=== PATIENT | female | born 1975 | race Caucasian/White ===

== ENCOUNTER 2022-08-27 09:51 | Day surgery (SDC) | payer OTHER ==
[2022-08-27] MEDS ORDERED: CEFAZOLIN 2 GM-D5W BAG** 2 GM/50 ML ML IV SCH (10:30)
[2022-08-27] MEDS ORDERED: Lactated Ringers 1,000 ML IV SCH (10:30)
[2022-08-27] MEDS ORDERED: DEXMEDETOMIDINE 80 MCG/20ML-NS IV ONE (11:13)
[2022-08-27] MEDS ORDERED: Marcaine 0.5%/Epinephrine 10 ML ONE ×2 (11:13→11:41)
[2022-08-27] MEDS ORDERED: Decadron 4 MG INJ ONE ×2 (11:13→11:41)
[2022-08-27] MEDS ORDERED: SUBLIMAZE 250 MCG/5 ML ONE (11:18)
[2022-08-27] MEDS ORDERED: Versed 2 MG/2 ML Injection ONE ×3 (11:18→14:52)
[2022-08-27 11:22] LABS: Hematocrit 42.5 % (35-47); Mean Cell Volume 81.7 fL (78-100); Mean Corpuscular Hemoglobin 26.9 pg (26-32); Mean Corpuscular Hgb Concent. 32.9 g/dL (32-36); Mean Platelet Volume 8.4 fL (7.5-11.0); Platelet Count 326 x10^3/uL (150-450); Red Cell Distribution Width 13.7 % (11.5-14.0); White Blood Count 11.4 x10^3/uL (4.0-10.5)
[2022-08-27] MEDS ORDERED: Naropin 0.5% 30 ML VIAL ONE (11:41)
[2022-08-27 11:43] LABS: ALBUMIN 4.5 g/dL (3.5-5.0); ALKALINE PHOSPHATASE 99 U/L (38-126); ANION GAP 15.5 MEQ/L (5-15); BLOOD UREA NITROGEN 11 mg/dL (7-17); CHLORIDE 101 mmol/L (98-107); Calcium 9.8 mg/dL (8.4-10.2); Carbon Dioxide 24 mmol/L (22-30); Creatinine 1 0.42 mg/dL (0.52-1.04); EST GLOMERULAR FILTRATION RATE > 60.0 ML/MIN; Glucose 157 mg/dL (74-106); Potassium 3.9 mmol/L (3.5-5.1); SGOT/AST 30 U/L (14-36); SGPT/ALT 32 U/L (0-35); SODIUM 137 mmol/L (137-145); Total Protein 8.5 g/dL (6.3-8.2)
[2022-08-27] MEDS ORDERED: Xylocaine-Mpf 2% 5 Ml Vial ONE ×2 (11:45→14:52)
[2022-08-27] MEDS ORDERED: SUBLIMAZE 100 MCG/2 ML ONE ×2 (14:52→15:30)
[2022-08-27] MEDS ORDERED: TORAdol 30 mg Injection ONE (14:52)
[2022-08-27] MEDS ORDERED: Zemuron 100 MG/10 ML ONE ×3 (14:52→16:42)
[2022-08-27] MEDS ORDERED: DIPRIVAN 200 MG/20 ML IV ONE (14:52)
[2022-08-27] MEDS ORDERED: Zofran 4 MG/2 ML VIAL ONE (14:52)
[2022-08-27] MEDS ORDERED: BRIDION 200MG/2ML IV ONE (15:11)
[2022-08-27] MEDS ORDERED: OFIRMEV 100 ML IV ONE (15:29)
[2022-08-27] MEDS ORDERED: Lactated Ringers 1,000 ML IV ONE (15:41)
[2022-08-27] MEDS ORDERED: REMIFENTANIL HCL IV ONE (16:51)
[2022-08-27] MEDS ORDERED: TRANDATE 20 MG/4 ML SYRINGE IV ONE ×2 (18:11→18:40)
[2022-08-27] MEDS ORDERED: Hydromorphone 1 mg/ml Injection ONE ×2 (18:35→18:47)
--- NOTE | 2022-08-27 18:49 | XRAY ---
Indication: Right foot 1st-3rd tarsometatarsal arthrodesis and calcaneal autograft. Intraoperative fluoroscopy provided for 5 minutes 10 seconds. 27 digital spot images submitted for interpretation ultimately demonstrates 1st-3rd tarsometatarsal arthrodesis with intact hardware. Also incidental instrumentation calcaneus. Correlate with intraoperative findings/report.
[2022-08-27 19:30] VITALS: O2SAT 95
[2022-08-27 19:35] VITALS: BP 158/84; PULSE 98
--- NOTE | 2022-08-30 10:16 | OP ---
SURGERY DATE/TIME: 08/27/2022 1543 PREOPERATIVE DIAGNOSES: 1) Lisfranc fracture-dislocation right foot. 2) Pain right foot. 3) Peripheral neuropathy. 4) Uncontrolled diabetes. 5) Qbppdun-Hexis-Kxgrc. 6) Pes planus. 7) Gastrocnemius equinus. POSTOPERATIVE DIAGNOSES: 1) Lisfranc fracture-dislocation right foot. 2) Pain right foot. 3) Peripheral neuropathy. 4) Uncontrolled diabetes. 5) Sjlogog-Eioom-Atypp. 6) Pes planus. 7) Gastrocnemius equinus. PROCEDURES: 1) Gastrocnemius resection. 2) Calcaneal autograft. 3) Transverse multiple arthrodesis of tarsometatarsal joints 1, 2 and 3. 4) Open reduction internal fixation of proximal phalanx hallux right foot. SURGEON: Kj Camejo DPM. TRUCKLOAD CHECKER: None. ANESTHESIA: General plus preoperative regional block. See anesthesia report for details. HEMOSTASIS: Thigh tourniquet set to 350 mm of Mercury for 110 total tourniquet minutes. ESTIMATED BLOOD LOSS: Approximately 50 cc. MATERIALS: A 4.0 x 34 mm VPC with 3.5 inline fusion plate for the first tarsometatarsal joint, 2.5 inline fusion plate, for the second tarsometatarsal joint 2.5 x 16 VPC with a 2.5 inline fusion, for the third tarsometatarsal joint 2.5 x 18 VPC for the distal phalanx. Bone marrow aspirate with 2 cc of Bonus Triad, 4-0 Monocryl, 3-0 Nylon, 2-0 Nylon. INJECTABLES: See anesthesia report for details. INDICATION FOR SURGERY: Shea is a very pleasant 47-year-old female who presented to my service approximately two weeks after an injury. The patient indicates that she woke up with a broken foot. The patient did not remember any significant injury. However, she presented to her crm marketing manager, Dr. Perdue, who took x-rays demonstrating a Lisfranc fracture dislocation. At that time Dr. 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 She is sent for casting to a [facility] and the Medical Scientific Officer and Manager Front thought it best for a second opinion. On inspection of the patient's extremity, there is a red hot swollen extremity with trauma, ecchymosis to the plantar arch. X-rays were taken demonstrating a fracture dislocation with instability of the forefoot. As a result, the patient secondary to her neuropathy like had a Lisfranc fracture. It was not quite Charcot. However, it does have the potential to turn into Charcot pretty quickly. The patient was discussed multiple options. Given the displacement of the second and the third metatarsal fractures, the patient had a discussion in regards to options in order to proceed. At this time the patient opted to proceed with fusion as this is the most predictable procedure for the Lisfranc fracture dislocation. She understands all risks, complications and benefits of surgical intervention at this time including but not limited to infection, hematoma, seroma, possibility of delayed wound healing, nonwound healing, possibility of nonbone healing and possibility of delayed wound healing. Given the patient is an uncontrolled diabetic with a slightly delayed presentation of a Lisfranc fracture dislocation, there may be not ideal reduction of the fracture fragments. However, the goal is to have a functional plantigrade foot by the end of the case. All of this was discussed with the patient at length. Plenty of time was allowed for the patient to ask questions which were answered to her apparent satisfaction. It is with that we decided to proceed with surgical intervention. DESCRIPTION OF PROCEDURE AND FINDINGS: The patient was brought into the OR and placed on the OR table in the supine position. At this time general anesthesia was administered until the patient was sedated. A well-padded thigh tourniquet was applied to the patient's right thigh and the tourniquet was set to 300 mm of Mercury. At this time attention the right lower extremity was prepped and draped in the typical sterile fashion and lowered onto the surgical field. At this time attention was directed to the posteromedial aspect of the right leg at the palpable dell of where the gastrocnemius muscle belly lies. Just distal to this a linear incision was made at the posterior medial aspect being careful not to damage the greater saphenous vein this was carried down utilizing blunt dissection to the crural fascia. The crural fascia was incised utilizing a 15 blade and a pediatric speculum was introduced into the posterior aspect of the calf rotated 90 degrees and opened this gave adequate visualization. A 10 blade was utilized to resect the gastrocnemius aponeurosis under direct visualization making sure not to damage the sural nerve at the lateral aspect of the surgical site. Once resected copious amounts of sterile saline were utilized to flush the site. 4-0 Monocryl was utilized to coapt the subcutaneous edges of the wound in a simple interrupted-type fashion and 3-0 Nylon utilized in horizontal mattress-type fashion to coapt the skin in everted-type fashion. Following this attention was directed to the lateral aspect of the calcaneus where a safe margin was found. A poke hole was made utilizing a 10 blade which was then dissected utilizing blunt dissection with curved hemostat. A 2 mm drill was utilized at the lateral cortex and series of increasingly sized curettes were introduced taking out approximately 2 cc of cancellous autograft. After this a staple interrupted Nylon 3-0 was utilized to coapt the skin edges. At this time an Esmarch was utilized to exsanguinate the leg and the tourniquet was inflated. Attention was directed to the dorsal aspect of the foot where dorsomedial incision was made at the dorsomedial aspect of the first tarsometatarsal joint and in between the second and third tarsometatarsal joint this was carried down making sure not to damage any neurovascular structures. Dissection of the first tarsometatarsal joint was first taken place. Preparation of the joint was achieved utilizing a honey danny as well as curettes and rongeurs. Copious amounts of sterile saline were utilized to flush the surgical site and then the joint was fenestrated utilizing a 2 mm drill fish scaled utilizing a curved osteotome. Attention was directed to the second and third tarsometatarsal joints where initially the joints were identified. The fracture fragments of the third metatarsal were also identified. A tenaculum was placed and a K-wire was introduced to the fracture at the base of the third metatarsal. A 2.5 x 16 VPC screw was introduced from a dorsal distal lateral to plantar proximal medial orientation capturing the fractured metatarsal base this was in adequate position. The remaining joints were prepped in the similar fashion to the first tarsometatarsal joint. After denuding the cartilage and prepping joint graft, copious amounts of sterile saline were utilized to flush the site and graft was placed from the calcaneus autograft into the sites. Compression was obtained utilizing compression distraction device and a 2.5 inline fusion plate was first applied to the second tarsometatarsal joint getting adequate compression. A 2.[address] was then applied to the dorsal aspect of the third metatarsal under oblique view and deemed to get compression through this joint as well. Attention then was directed to the first tarsometatarsal joint where a 4.0 x 34 mm VPC screw was introduced from a dorsal distal to a proximal plantar orientation getting excellent compression and providing for plantar flexion of the first ray. A 3.5 inline fusion plate was then introduced utilizing a combination of locking and nonlocking screws. The distal screw was then obliqued across the first metatarsal and into the intermediate cuneiform for intercuneiform stability. At this time position was checked and deemed to be in adequate position. A K-wire was introduced and a 2.5 x 18 MAX VPC screw was introduced into the base of the proximal phalanx medially gaining excellent compression through the fracture site. Following this copious amounts of sterile saline were utilized to flush the surgical site. Six Suturegards were utilized to take the tension off of the skin edge of the right foot. 4-0 Monocryl was utilized to coapt the subcutaneous edges in a simple interrupted-type fashion and then 3-0 Nylon was utilized to coapt the skin edges in a horizontal mattress-type fashion. Dressings consisting of Betadine, Adaptic, 4x4, Kerlix and a well-padded posterior splint with Sugar-Tong was then applied to the right lower extremity with the foot orthogonal relative to the longitudinal axis of the leg. The patient handled the anesthesia as well as the procedure without significant complication. Postoperative orders as indicated in the patient's discharge chart.
== END 2022-08-27 19:37 | disposition home or self-care (01) ==
LOC: SDC 09:51
PROVIDERS: ATTEND Podiatrist Foot & Ankle Surgery
DX: S93.324A Dislocation of tarsometatarsal joint of right foot, initial encounter (principal); M79.671 Pain in right foot; E11.42 Type 2 diabetes mellitus with diabetic polyneuropathy; E11.65 Type 2 diabetes mellitus with hyperglycemia; G60.0 Hereditary motor and sensory neuropathy; M21.41 Flat foot [pes planus] (acquired), right foot; M21.961 Unspecified acquired deformity of right lower leg
CPT/HCPCS: 20900; 27687; 28505; 28730; 36415; 73630; 76000; 80053; 82947; 85027; C1713; C1762; C1769; J0690; J1100; J1170; J1885; J2250; J2405; J2704; J2795; J3010

== ENCOUNTER 2023-03-04 06:27 | Day surgery (SDC) | payer OTHER ==
[2023-03-04] MEDS ORDERED: EXPAREL 133 MG/10 ML VIAL IJ ONE (06:28)
[2023-03-04] MEDS ORDERED: Lactated Ringers 1,000 ML IV SCH (07:30)
[2023-03-04 07:52] LABS: Hematocrit 43.1 % (35-47); Hemoglobin 14.5 g/dL (12.0-16.0); Mean Cell Volume 83.7 fL (78-100); Mean Corpuscular Hemoglobin 28.2 pg (26-32); Mean Corpuscular Hgb Concent. 33.6 g/dL (32-36); Mean Platelet Volume 8.6 fL (7.5-11.0); Platelet Count 246 x10^3/uL (150-450); Red Blood Count 5.15 x10^6/uL (4.1-5.4); Red Cell Distribution Width 13.7 % (11.5-14.0); White Blood Count 8.9 x10^3/uL (4.0-10.5)
[2023-03-04 08:05] LABS: ALBUMIN 4.2 g/dL (3.5-5.0); BILIRUBIN,TOTAL 0.5 mg/dL (0.2-1.3); Calcium 9.5 mg/dL (8.4-10.2); Creatinine 1 0.36 mg/dL (0.52-1.04); EST GLOMERULAR FILTRATION RATE 126.7 ML/MIN; Potassium 3.6 mmol/L (3.5-5.1); Total Protein 7.7 g/dL (6.3-8.2)
[2023-03-04 08:10] VITALS: RESP 18
[2023-03-04] MEDS ORDERED: Transderm Scop 1.5MG Patch TOP PRN (08:32)
[2023-03-04] MEDS ORDERED: Pepcid 20 MG VIAL IV ONE (08:32)
[2023-03-04] MEDS ORDERED: Reglan 10 MG/2 ML IV ONE (08:32)
[2023-03-04] MEDS ORDERED: Versed 2 MG/2 ML Injection ONE (09:22)
[2023-03-04] MEDS ORDERED: Decadron 4 MG INJ ONE (09:22)
[2023-03-04] MEDS ORDERED: Zofran 4 MG/2 ML VIAL ONE (09:22)
[2023-03-04] MEDS ORDERED: Xylocaine-Mpf 2% 5 Ml Vial ONE (09:22)
[2023-03-04] MEDS ORDERED: BRIDION 200MG/2ML IV ONE (09:22)
[2023-03-04] MEDS ORDERED: Zemuron 100 MG/10 ML ONE ×2 (09:22→10:30)
[2023-03-04] MEDS ORDERED: DIPRIVAN 200 MG/20 ML IV ONE (09:22)
[2023-03-04] MEDS ORDERED: SUBLIMAZE 100 MCG/2 ML ONE ×2 (09:23→12:01)
[2023-03-04] MEDS ORDERED: OFIRMEV 100 ML IV ONE (09:31)
[2023-03-04] MEDS ORDERED: Pre-Attached Lta Kit TP ONE (09:31)
[2023-03-04] MEDS ORDERED: Marcaine Mpf 0.5% Vial 30 Ml ONE (09:31)
[2023-03-04] MEDS ORDERED: Epinephrine Preservative Free 1 MG/ML ONE (10:01)
[2023-03-04] MEDS ORDERED: KEFZOL 1 GM ONE (10:07)
[2023-03-04] MEDS ORDERED: Ephedrine Sulfate 50 MG/ML ONE (10:48)
[2023-03-04] MEDS ORDERED: PHENYLEPHRINE HCL ONE (10:57)
[2023-03-04] MEDS ORDERED: REMIFENTANIL HCL IV ONE (12:04)
--- NOTE | 2023-03-04 13:17 | XRAY ---
Indication: Right ankle arthroscopy with synovectomy, lateral ankle stabilization, and tibial osteotomy. Intraoperative fluoroscopy provided for 3 minute 47 seconds. 19 digital spot images submitted for interpretation demonstrates instrumentation lateral malleolus. Correlate with intraoperative findings/report.
[2023-03-04] MEDS ORDERED: Hydromorphone 1 mg/ml Injection ONE (13:25)
--- NOTE | 2023-03-04 14:49 | XRAY ---
3 minutes and 47 seconds of fluoroscopy was used in surgery for a right ankle arthroscopy with synovectomy, lateral ankle stabilization, and tibial osteotomy.
[2023-03-04 14:50] VITALS: BP 160/110; PULSE 110; TEMP 97.1; O2SAT 96
[2023-03-04] MEDS ORDERED: ALBUTEROL/Proair Hfa MDI IH ONE (16:20)
--- NOTE | 2023-03-07 14:20 | OP ---
SURGERY DATE/TIME: 03/04/2023 1004 PREOPERATIVE DIAGNOSES: 1) Right ankle effusion with synovitis. 2) Tibial exostosis. 3) Fibular accessory ossicle. 4) Right ankle pain. 5) Tibialis anterior tenosynovitis with tendon disease. 6) Saphenous nerve compression injury. 7) Lateral ankle instability. POSTOPERATIVE DIAGNOSES: 1) Right ankle effusion with synovitis. 2) Tibial exostosis. 3) Fibular accessory ossicle. 4) Right ankle pain. 5) Tibialis anterior tenosynovitis with tendon disease. 6) Saphenous nerve compression injury. 7) Lateral ankle instability. PROCEDURES: 1) Ankle arthroscopy with complete synovectomy. 2) Tibial exostectomy. 3) Fibular accessory ossicle excision. 4) Tibialis anterior tenosynovectomy and tendon repair. 5) Saphenous nerve decompression. 6) Lateral ankle stabilization with Domenico internal blade. SURGEON: Kj Camejo DPM. PAROLE OR PROBATION OFFICER: None. ANESTHESIA: General plus a preoperative regional block. See anesthesia notes for details. HEMOSTASIS: Thigh tourniquet set to 325 mm of Mercury for 65 total tourniquet minutes. ESTIMATED BLOOD LOSS: Approximately 10 cc. MATERIALS: 3-0 Prolene, a 3 x 3 Tapestry, two - 2.9 JuggerKnot with BroadBand and then 2.9 Betta Link to 1.45 JuggerKnot x2, 4-0 Monocryl, 3-0 Nylon. INJECTABLES: See anesthesia report for details. INDICATION FOR SURGERY: Shea is a very pleasant 47-year-old female very well known to my service earlier this year for a Lisfranc injury that resulted in a Charcot-like pathology to her right foot. As a result, the patient was having significant instability to her forefoot and indications of Charcot osteoarthropathy to her midfoot. As a result the decision was made to proceed with repair which at this time is doing extraordinarily well. The patient did have some complication of healing this surgical wound on the dorsal aspect of her foot. However, it is stable now with no indication of breakdown of this area and a relatively stable fusion. As time progressed and working with physical therapy, the patient did note some ankle pain. However over the course of the last several months this has been progressively getting worse. She did have an injection that was performed which did not alleviate a lot of her symptoms. The patient was provided options as far as conservative and surgical options. Given that the patient had failed conservative treatment consisting of physical therapy, immobilization and steroid injections, the decision was made to proceed with surgical intervention which the patient is amenable at this time. The patient understands all risks, complications and benefits of the surgical intervention including but not limited to infection, hematoma, seroma, possibility of delayed wound healing, nonwound healing, possibility of failure of surgical intervention and possible need for further surgery intervention at a later date. No guarantees were provided as to the outcome of surgical intervention. Plenty of time was allowed for the patient to ask questions which were answered to her apparent satisfaction. It is at this time we decided to proceed. DESCRIPTION OF PROCEDURE AND FINDINGS: The patient was brought into the OR and placed on the OR table in the supine position. At this time general anesthesia was administered until the patient was sedated. A well-padded thigh tourniquet was applied to the patient's right thigh which was set to 325 mm of Mercury. At this time the right lower extremity was prepped and draped in the typical sterile fashion and lowered onto the surgical field. At this time attention was directed to the anterior medial aspect of the ankle joint where the medial malleolus was mapped out as well as the palpable dell of the ankle joint when placed in dorsiflexed position as well as lateral malleolus landmarks were identified for the anteromedial and anterolateral portals. Insufflation was carried out utilizing lactated Ringer's in a syringe 18 gauge needle. At this time insufflation took approximately 20 cc. From that standpoint an 11 blade was utilized to make a linear incision at the anteromedial portal site that was established previously. Blunt mini-curved hemostat was then introduced until insufflation fluid was identified and the capsule was punctured. A blunt obturator with trocar was introduced and the 4.0 mm 30 degree camera was introduced gaining inspection of the joint. A significant amount of crabmeat synovitis as well as hemorrhagic synovitis was identified on initial inspection particularly at the lateral aspect of the ankle joint. A 2.7 mm shaver was introduced in through a lateral portal following the same criteria making sure not to damage any neurovascular structures entering the joint. Extensive debridement took place at this time removing as much of the synovitis as possible, this was checked under multiple pictures and deemed to be adequate at this time. At this time a shaver and power rasp were utilized to resect the tibial exostosis. From that standpoint, the scopes were removed from the portal sites and reversed. The camera being placed into to the lateral portal and then the shaver into the medial portal and continued synovectomy took place. From this standpoint, the scope was withdrawn. The tourniquet was then inflated after having Esmarched the leg. At this time a 15 blade was utilized to make an incision at the tibialis anterior tendon scoping the difference between the saphenous nerve and the tibialis anterior tendon. The tibialis anterior tendon sheath was identified and resected showing a significant amount of tenosynovitis with a low das of inflammatory fluid when the tenosynovium was incised. At this point the anterior aspect of the tendon was inspected with a significant amount of disease at the anterior face of the tendon with yellow degradation of the tendon this was debrided then an all-inside method of repair was performed utilizing 3-0 Prolene. At this time the posterior aspect of the tendon was inspected. The tenosynovium in the area of interest indicated on the MRI was removed and handed off the field for pathologic assessment. At this time Tapestry 3x3 was introduced and sutured to the tibialis anterior. Following this, the saphenous nerve was identified running with the course of the saphenous vein this was decompressed however no significant scar tissue or compression was identified at this level. The tendon was decompressed utilizing a combination of blunt trocar dissection however primarily blunt dissection surrounding the area of the saphenous vein and nerve this was performed through the same incision that the tendon repair was performed. Following this, a curvilinear incision was made from the distal tip of the fibula centrally to the sinus tarsi. The anterior talofibular ligament was identified and reflected off of the distal lip of the fibula with a small cuff being left. At this time lateral ankle stabilization took place with the use of 1.45 JuggerKnot with BroadBand basically repairing the anterior talofibular ligament after resecting some of the necrotic diseased tendon with a 2.9 JuggerKnot with BroadBand to a Betta Link PEEK anchor, this was performed underneath the anterior talofibular ligament and then a Brostrom-type procedure was performed over the top of this internal brace this was carried out in a [id number] type fashion and holding the foot in everted and dorsiflexed position. Stress views at this time were taken demonstrating significant improvement to the patient's talar port and anterior drawer. At this time a fibular ostectomy was performed to the distal aspect which was preventing anchors from being placed in the distal aspect of the fibula. Following this, the sutures were tied down and copious amounts of sterile saline were utilized to flush the surgical site. 4-0 Monocryl was utilized to coapt the subcutaneous skin edges and 3-0 Nylon was utilized to zen the skin edges in a horizontal mattress-type fashion. Following this, a dressing consisting of Betadine, Adaptic, 4x4, Kerlix and a well-padded posterior splint was applied to the patient's right lower extremity. The patient then was reversed from anesthesia and returned to the postoperative anesthesia care unit with vital signs stable and vascular status intact. The patient handled the anesthesia as well as the procedure without significant complication. Postoperative orders as indicated in the patient's discharge chart.
== END 2023-03-04 14:35 | disposition home or self-care (01) ==
LOC: SDC 06:27
PROVIDERS: ATTEND Podiatrist Foot & Ankle Surgery
DX: M25.471 Effusion, right ankle (principal); M25.571 Pain in right ankle and joints of right foot; M25.371 Other instability, right ankle; S94.91XA Injury of unspecified nerve at ankle and foot level, right leg, initial encounter; M89.8X6 Other specified disorders of bone, lower leg; M76.812 Anterior tibial syndrome, left leg; M65.9 Synovitis and tenosynovitis, unspecified; Q66.89 Other specified congenital deformities of feet; E11.9 Type 2 diabetes mellitus without complications
CPT/HCPCS: 27635; 27640; 27664; 27696; 29898; 36415; 64708; 73610; 76000; 76937; 80053; 82947; 85027; 93005; C1713; J0171; J0690; J1100; J1170; J2250; J2371; J2405; J2704; J3010; A9270-GY

== ENCOUNTER 2023-07-19 06:04 | Day surgery (SDC) | payer OTHER ==
[2023-07-19] MEDS ORDERED: CEFAZOLIN 2 GM-D5W BAG** 2 GM/50 ML ML IV ONE (06:30)
[2023-07-19] MEDS ORDERED: Lactated Ringers 1,000 ML IV ONE (06:30)
[2023-07-19 06:33] VITALS: RESP 18; O2SAT 97
[2023-07-19] MEDS: CEFAZOLIN 2 GM-D5W BAG** 2 GM/50 ML ML IV SCH (06:39)
[2023-07-19] MEDS: Lactated Ringers 1,000 ML IV SCH (06:39)
[2023-07-19 06:46] LABS: Hematocrit 42.9 % (35-47); Hemoglobin 14.7 g/dL (12.0-16.0); Mean Cell Volume 81.7 fL (78-100); Mean Corpuscular Hgb Concent. 34.3 g/dL (32-36); Mean Platelet Volume 9.1 fL (7.5-11.0); Platelet Count 313 x10^3/uL (150-450); Red Blood Count 5.25 x10^6/uL (4.1-5.4); Red Cell Distribution Width 14.4 % (11.5-14.0); White Blood Count 7.8 x10^3/uL (4.0-10.5)
[2023-07-19] MEDS: Zofran 4 MG/2 ML VIAL IV STA (06:49)
[2023-07-19] MEDS ORDERED: DIPRIVAN 200 MG/20 ML IV ONE ×2 (06:51→07:39)
[2023-07-19] MEDS ORDERED: TORAdol 30 mg Injection ONE (06:51)
[2023-07-19] MEDS ORDERED: Versed 2 MG/2 ML Injection ONE ×2 (06:51→07:34)
[2023-07-19] MEDS ORDERED: Xylocaine-Mpf 2% 5 Ml Vial ONE (06:51)
[2023-07-19] MEDS ORDERED: SUBLIMAZE 100 MCG/2 ML ONE ×2 (06:52→08:05)
[2023-07-19 07:00] LABS: ALBUMIN 4.2 g/dL (3.5-5.0); ANION GAP 16.5 MEQ/L (5-15); BILIRUBIN,TOTAL 0.4 mg/dL (0.2-1.3); Calcium 9.3 mg/dL (8.4-10.2); Creatinine 1 0.4 mg/dL (0.52-1.04); EST GLOMERULAR FILTRATION RATE 122.8 ML/MIN; Potassium 3.6 mmol/L (3.5-5.1); Total Protein 7.7 g/dL (6.3-8.2)
[2023-07-19] MEDS ORDERED: Marcaine Mpf 0.5% Vial 30 Ml ONE (07:19)
[2023-07-19] MEDS ORDERED: XYLOCAINE 1% HCL 20 ML MDV ONE (07:19)
[2023-07-19] MEDS ORDERED: Reglan 10 MG/2 ML ONE (08:09)
[2023-07-19] MEDS ORDERED: Hydromorphone 1 mg/ml Injection ONE (08:23)
--- NOTE | 2023-07-19 08:39 | XRAY ---
Indication: Right foot bone biopsy. Intraoperative fluoroscopy provided for 5 seconds. 3 digital spot images submitted for interpretation demonstrates scalpel tip projecting midfoot. Correlate with intraoperative findings/report.
[2023-07-19 09:03] VITALS: TEMP 97.6
[2023-07-19 09:18] VITALS: BP 156/97; PULSE 83
--- NOTE | 2023-07-19 11:15 | XRAY ---
5 seconds of fluoroscopy was used in surgery for a right foot bone biopsy.
--- NOTE | 2023-07-22 08:58 | OP ---
SURGERY DATE/TIME: 07/19/2023 0718 PREOPERATIVE DIAGNOSES: 1) Osteomyelitis. 2) Pseudoarthrosis of arthrodesis site. POSTOPERATIVE DIAGNOSES: 1) Osteomyelitis. 2) Pseudoarthrosis of arthrodesis site. PROCEDURE: Bone biopsy right foot x2. SURGEON: Kj Camejo DPM. PHYSICIAN EXTENDER: None. ANESTHESIA: Monitored anesthesia care with intraoperative local block consisting of 10 cc of a 1:1 mixture of 1% lidocaine plain and 0.5% bupivacaine plain. HEMOSTASIS: Pressure dressing. QUANTITATIVE BLOOD LOSS: Approximately 5 cc. MATERIALS: 3-0 Nylon. INJECTABLES: 10 cc of 1:1 mixture of 1% lidocaine plain and 0.5% bupivacaine plain injected in a proximal block-type fashion to the medial aspect of the right foot. INDICATION FOR SURGERY: Shea is a very pleasant 48-year-old female who last year underwent arthrodesis of her midfoot secondary to a Lisfranc fracture dislocation. As a result, the patient did do well but did have an open wound over the dorsal aspect of her right foot secondary to wound dehiscence. This would develop a Methicillin-resistant Staphylococcus aureus infection however cleared without complication. Within the last several weeks the patient has been experiencing increased pain over the site and MRI was obtained demonstrating a pseudoarthrosis of the site this was suspicious secondary to the fact that it had been such a long time and there had been no pain to the site. However, because there was an infection very close to identify this as a true pseudoarthrosis, we decided to proceed with a bone biopsy. The patient understands all risks, complications and benefits of surgical intervention at this time including but not limited to infection, hematoma, seroma, possibility of delayed wound healing, nonwound healing and possible need for further surgical intervention at a later date. No guarantees were provided as to the outcome. Plenty of time was allowed for the patient to ask questions which were answered to her apparent satisfaction. It is at this time we decided to proceed. DESCRIPTION OF PROCEDURE AND FINDINGS: The patient is brought into the OR and placed on the OR table in the supine position. At this time, monitored anesthesia care was administered until the patient was adequately sedated. At this time, a 10 cc block of a 1:1 mixture of 1% lidocaine plain and 0.5% bupivacaine plain was injected into the posterior tibial and the saphenous nerve distributions. At this time, attention was directed to the arthrodesis site of the first tarsometatarsal joint where the MRI specified there was an obvious nonunion and previous infection was present. A trocar bone biopsy was carried out under fluoroscopic guidance. The bone biopsies were obtained from two separate sites along the first tarsometatarsal joint. Culture and biopsy was obtained. Following this, copious amounts of sterile saline were utilized to flush the surgical site. A simple interrupted 3-0 stitch was then utilized to coapt the skin edges. Following this, a dressing consisting of Betadine, Adaptic, 4x4, Kerlix and ALICE was applied to the patients right lower extremity. The patient was then reversed from anesthesia and returned to the postoperative anesthesia care unit with vital signs stable and vascular status intact. The patient handled the anesthesia as well as the procedure without significant complication. Postoperative orders as indicated in the patient's discharge chart.
== END 2023-07-19 09:29 | disposition home or self-care (01) ==
LOC: SDC 06:04
PROVIDERS: ATTEND Podiatrist Foot & Ankle Surgery
DX: M86.9 Osteomyelitis, unspecified (principal); E11.9 Type 2 diabetes mellitus without complications
CPT/HCPCS: 20240; 36415; 73620; 76000; 80053; 82947; 83036; 85027; 87070; 87075; 93005; J0690; J1170; J1885; J2250; J2405; J2704; J3010

== ENCOUNTER 2023-08-09 05:42 | Day surgery (SDC) | payer OTHER ==
[2023-08-09] MEDS ORDERED: CEFAZOLIN 2 GM-D5W BAG** 2 GM/50 ML ML IV ONE (06:03)
[2023-08-09] MEDS ORDERED: Lactated Ringers 1,000 ML IV ONE ×3 (06:03→10:18)
[2023-08-09] MEDS ORDERED: celeBREX 100 MG ONE (06:16)
[2023-08-09] MEDS ORDERED: Decadron 4 MG ONE (06:16)
[2023-08-09] MEDS ORDERED: TYLENOL EXTRA STRENGTH 500 MG ONE (06:16)
[2023-08-09] MEDS ORDERED: NEURONTIN ONE (06:18)
[2023-08-09] MEDS: TYLENOL EXTRA STRENGTH 500 MG PO ONE (06:19)
[2023-08-09] MEDS: NEURONTIN PO ONE (06:19)
[2023-08-09] MEDS: Decadron 4 MG PO ONE (06:19)
[2023-08-09 06:20] LABS: Absolute Neutrophil Ct (ANC) 3.08 x10^3/uL (1.4-6.9); BASOPHIL % 0.8 % (0.0-0.4); Basophil (Absolute #) 0.06 x10^3/uL (0-0.4); Eosinophil % 0.7 % (0.00-5.0); Eosinophil (Absolute #) 0.05 x10^3/uL (0-0.5); Hematocrit 40.9 % (35-47); Hemoglobin 14.3 g/dL (12.0-16.0); IMMATURE GRAN # 0.01 x10^3u/L (0.00-0.03); IMMATURE GRAN % 0.1 % (0.00-0.4); Lymphocyte (Absolute #) 3.87 x10^3/uL (1.0-4.6); Lymphocytes % 50.6 % (24.0-44.0); Mean Cell Volume 82.5 fL (78-100); Mean Corpuscular Hemoglobin 28.8 pg (26-32); Mean Platelet Volume 8.7 fL (7.5-11.0); Monocyte (Absolute #) 0.58 x10^3/uL (0.0-1.3); Monocytes % 7.6 % (0.0-12.0); Neutrophil % 40.2 % (36.0-66.0); Platelet Count 379 x10^3/uL (150-450); Red Blood Count 4.96 x10^6/uL (4.1-5.4); Red Cell Distribution Width 14.5 % (11.5-14.0); White Blood Count 7.7 x10^3/uL (4.0-10.5)
[2023-08-09] MEDS: Lactated Ringers 1,000 ML IV SCH (06:20)
[2023-08-09] MEDS: celeBREX 100 MG PO ONE (06:20)
[2023-08-09] MEDS: CEFAZOLIN 2 GM-D5W BAG** 2 GM/50 ML ML IV SCH (06:23)
[2023-08-09] MEDS ORDERED: DIPRIVAN 200 MG/20 ML IV ONE ×2 (06:25→07:54)
[2023-08-09] MEDS ORDERED: Xylocaine-Mpf 2% 5 Ml Vial ONE (06:25)
[2023-08-09] MEDS ORDERED: Naropin 0.5% 30 ML VIAL ONE (06:25)
[2023-08-09] MEDS ORDERED: SUBLIMAZE 100 MCG/2 ML ONE ×3 (06:25→11:09)
[2023-08-09] MEDS ORDERED: Marcaine 0.5%/Epinephrine 10 ML ONE (06:25)
[2023-08-09] MEDS ORDERED: Versed 2 MG/2 ML Injection ONE (06:25)
[2023-08-09 06:33] LABS: HCG SERUM TEST NEGATIVE (NEGATIVE)
[2023-08-09 06:45] LABS: ALBUMIN 4.6 g/dL (3.5-5.0); ANION GAP 16.7 MEQ/L (5-15); BILIRUBIN,TOTAL 0.5 mg/dL (0.2-1.3); Calcium 9.3 mg/dL (8.4-10.2); Creatinine 1 0.37 mg/dL (0.52-1.04); EST GLOMERULAR FILTRATION RATE 125.1 ML/MIN; Potassium 3.5 mmol/L (3.5-5.1); Total Protein 8.1 g/dL (6.3-8.2)
[2023-08-09] MEDS ORDERED: Zofran 4 MG/2 ML VIAL ONE ×2 (07:19→10:59)
[2023-08-09] MEDS ORDERED: BRIDION 200MG/2ML IV ONE (07:19)
[2023-08-09] MEDS ORDERED: ROCURONIUM BROMIDE IV ONE (07:19)
[2023-08-09] MEDS ORDERED: TORAdol 30 mg Injection ONE (07:19)
[2023-08-09] MEDS ORDERED: Ephedrine Sulfate 50 MG/ML ONE (08:30)
--- NOTE | 2023-08-09 10:56 | XRAY ---
Indication: Right foot hardware removal. Calcaneal autograph. Intraoperative fluoroscopy provided for 4 minutes 56 seconds. 74 digital spot images submitted for interpretation demonstrates surgical removal broken screw base 1st metatarsal. New 1st tarsometatarsal arthrodesis with new fixation plates/screws. Also new calcaneal osteotomy with single screw. Correlate with intraoperative findings/report.
[2023-08-09] MEDS ORDERED: Hydromorphone 1 mg/ml Injection ONE (11:29)
[2023-08-09] MEDS ORDERED: Compazine 10 MG/2 ML ONE (11:40)
[2023-08-09] MEDS ORDERED: TRANDATE 20 MG/4 ML SYRINGE IV ONE (11:51)
[2023-08-09] MEDS ORDERED: APRESOLINE 20 MG/ML INJ ONE (12:42)
[2023-08-09 13:02] VITALS: RESP 18; TEMP 97.6
--- NOTE | 2023-08-09 13:06 | XRAY ---
Four minutes and 56 seconds of fluoroscopy was used in surgery for a right foot hardware removal. Calcaneal autograph.
[2023-08-09 13:16] VITALS: BP 171/94; PULSE 89; O2SAT 96
--- NOTE | 2023-08-10 09:12 | OP ---
SURGERY DATE/TIME: 08/09/2023 0723 PREOPERATIVE DIAGNOSES: 1) Nonunion first metatarsophalangeal joint. 2) Hypermobility of midfoot. 3) Painful hardware in situ. 4) Umbhxrl-Axfem-Dsyfc. 5) Peripheral neuropathy. 6) Diabetes mellitus. 7) Pain right foot. POSTOPERATIVE DIAGNOSES: 1) Nonunion first metatarsophalangeal joint. 2) Hypermobility of midfoot. 3) Painful hardware in situ. 4) Xgytqzr-Wzdde-Yjabq. 5) Peripheral neuropathy. 6) Diabetes mellitus. 7) Pain right foot. PROCEDURES: 1) Removal of hardware right foot. 2) Block calcaneal autograft. 3) Arthrodesis first tarsometatarsal joint as well as medial cuneiform. SURGEON: Kj Camejo DPM. COMPLIANCE MONITOR: None. ANESTHESIA: General with a preoperative popliteal and saphenous block. HEMOSTASIS: Thigh tourniquet set to 320 mm of Mercury for 120 total tourniquet minutes. QUANTITATIVE BLOOD LOSS: Approximately 20 cc. MATERIALS: 4.0 x 36 VPC, a 7-hole and 5-hole Newclip straight plate and then a 4.0 x 36 mm fully threaded headed for prophylactic purpose at calcaneus and 2 cc of StrataGraft Plus. 2-0 Vicryl and 3-0 Nylon. INDICATION FOR SURGERY: Shea is a very pleasant 48-year-old female very well known to my service for a Lisfranc/Charcot osteoarthropathy of the right foot that occurred approximately one year ago. The patient did have an uneventful healing course at that time. She does have Lhtgugq-Eeifz-Aufav along with peripheral neuropathy as a result of the Qzqsfqt-Kzpao-Vzrcu and diabetes which is relatively well controlled. As a result, this led to a nonunion. There was potential suspicion due to a dehiscence over the dorsal aspect of the right foot and Methicillin-resistant Staphylococcus aureus infection during that period of time but there may be a chronic osteomyelitis. Bone biopsies were obtained approximately two weeks ago demonstrating no indication of osteomyelitis and decision was made to proceed with a revision of the union with a calcaneal autograft and revision of the site. From that standpoint, the patient understands all risks, complications and benefits of surgical intervention at this time including but not limited to infection, hematoma, seroma, possibility of delayed wound healing, nonwound healing, possibility of delayed bone healing, nonbone healing in this situation a nonunion or delayed union. From that standpoint, the decision was made to proceed. Plenty of time was allowed for the patient to ask questions which were answered to her apparent satisfaction. No guarantees were provided as to the outcome. It is at this time we decided to proceed. DESCRIPTION OF PROCEDURE AND FINDINGS: The patient was brought into the postoperative anesthesia care unit prior to starting with the operation. A popliteal and saphenous block was provided. See anesthesia report for details. Following this, the patient was brought to the OR and placed on the OR table in the supine position. At this time, general anesthesia was administered. The right lower extremity was prepped and draped in the typical sterile fashion. A well-padded thigh tourniquet was applied to the patient's right thigh and based on blood pressure, the tourniquet to 320 mm of Mercury. At this time, attention was directed to the right foot where an Esmarch was utilized to exsanguinate the foot. Following the footprint of the previous plate, a surgical incision was made utilizing a 10 blade carrying this down to the level of bone being careful not to damage any neurovascular structures. This was performed utilizing a combination of blunt and sharp dissection. Once the plate was exposed, the hardware was removed from the medial aspect. All screws were intact at this site. The interfragmentary screw at the dorsal aspect of the joint was then visualized and the proximal extent was removed. However, there was an extent that was intra-articular that was broken. At this time, attempts to get it out failed. However, the decision was made to proceed with a Christina darrel and burred down the hardware to being negligible and out of the way. Once that occurred, Pulsavac was utilized to flush the surgical site for any residual pieces of metal within the site. Following this, resection of the nonunion was performed. Healthy bleeding was seen immediately at the medial cuneiform site however, significant amount of bone needed to be resected from the metatarsal side. With that, the decision was made given the amount of bone loss to proceed with a bone block calcaneal autograft harvest. From that standpoint, tourniquet was let down and debridement was assessed at both ends of the bone. Position was held with the metatarsal parabola was respected and plantar flexion of the first ray. At this time, it was deemed approximately 1.5 cm was necessary in order to restore the length and allow for reduced shortening. Under direct visualization of the lateral wall of the calcaneus, a Canterbury with fluoroscopic for direct visualization under fluoroscopic guidance. The lateral wall was exposed of the calcaneus making sure not to damage any neurovascular structures in this territory. A bulk graft obtained utilizing an 18 mm sagittal saw and osteotomes. Once harvested, this measured to be approximately 1.2 mm in width and approximately 2 cm in length this was placed in the freshly prepped area where 2 mm drill and osteotomes were utilized to fenestrate the joint surfaces at the tarsometatarsal joints. Following this, the graft was placed and adequate apposition and adequate position was maintained this was pinned in temporary fixation with three - 0.065 K-wires. From that standpoint, a medial and a dorsal Newclip straight plate with 7-hole and 5-holes respectively were fixated proximally and with compression of the tarsometatarsal joint. The plates were fixated utilizing a combination of locking and nonlocking screws. From that standpoint, a 4.0 x 36 VPC was introduced in a dorsal distal to plantar proximal orientation gaining relatively excellent compression to this site. Following this, assessment of the surface of the joint was assessed and deemed to be of adequate fixation and stability. 90-90 plating worked very well for this patient. The decision was made to put a prophylactic screw into the harvest site due to its size and a 4.0 x 36 mm fully threaded screw was introduced. 2 cc of StrataGraft Plus was then introduced and placed into the deficit. From this standpoint, all sites were flushed with copious amounts of sterile saline. 2-0 Vicryl and 3-0 Nylon were utilized in a simple interrupted buried-type fashion and horizontal mattress-type fashion coapting the skin edges under minimal tension. A dressing consisting of Betadine, Adaptic, 4x4, Kerlix, ABD and ALICE was applied to the patient's right lower extremity. The patient was then reversed from anesthesia and returned to the postoperative anesthesia care unit with vital signs stable and vascular status intact. The patient handled the anesthesia as well as the procedure without significant complication. Postoperative orders as indicated in the patient's discharge chart.
== END 2023-08-09 13:33 | disposition home or self-care (01) ==
LOC: SDC 05:42
PROVIDERS: ATTEND Podiatrist Foot & Ankle Surgery
DX: S92.311A Displaced fracture of first metatarsal bone, right foot, initial encounter for closed fracture (principal); M35.7 Hypermobility syndrome; T84.84XA Pain due to internal orthopedic prosthetic devices, implants and grafts, initial encounter; G60.0 Hereditary motor and sensory neuropathy; E11.42 Type 2 diabetes mellitus with diabetic polyneuropathy; M79.671 Pain in right foot
CPT/HCPCS: 20680; 20902; 28737; 36415; 73630; 76000; 76937; 80053; 82947; 84703; 85025; C1713; C1762; J0360; J0690; J1170; J1885; J2250; J2405; J2704; J2795; J3010; A9270-GY